=== PATIENT | female | born 1960 | race Caucasian/White ===

== ENCOUNTER 2018-11-25 16:35 | Emergency (ER) | payer MEDICARE, MEDICAID ==
[2018-11-25 17:53] VITALS: BP 127/64
--- NOTE | 2018-11-25 19:34 | UC ---
Respiratory Complaint HPI - HPI Summary HPI Summary: Patient is a 58 year old woman, who present today to the urgent care with sore throat and bilateral ear pain for past 3 days. Right ear hurts more than the left. There is some dry cough associated, denies any congestion or body aches. No sick contacts reported Denies any fever, chills, cough chest pain or shortness of breath . Denies any abdominal pain , nausea or vomiting , diarrhea or constipation. - History of Current Complaint Chief Complaint: UCRespiratory Stated Complaint: ST,B/L EAR COMPLAINT Time Seen by Provider: 11/25/18 19:13 Hx Obtained From: Patient ?: No Pain Intensity: 9 - Allergies/Home Medications Allergies/Adverse Reactions: Allergies Allergy/AdvReac Type Severity Reaction Status Date / Time hydrocodone Allergy Rash Verified 11/25/18 17:53 Penicillins Allergy Rash Verified 11/25/18 17:53 Home Medications: Home Medications Aspirin [Adult Aspirin] 81 mg PO BEDTIME 11/25/18 [History Confirmed 11/25/18] Omeprazole 20 mg PO DAILY 11/25/18 [History Confirmed 11/25/18] Pravastatin Sodium 20 mg PO BEDTIME 11/25/18 [History Confirmed 11/25/18] buPROPion HCl [Wellbutrin Sr] 450 mg PO DAILY 11/25/18 [History Confirmed ] traZODone TAB* [Desyrel TAB*] 50 mg PO BEDTIME 11/25/18 [History Confirmed 11/25] PMH/Surg Hx/FS Hx/Imm Hx - Additional Past Medical History Additional PMH: GERD Depression Hyperlipidemia Sleep problems Previously Healthy: Yes - Surgical History Surgical History: Yes Surgery Procedure, Year, and Place: tubal - Social History Alcohol Use: None Substance Use Type: None Smoking Status (MU): Never Smoked Tobacco Review of Systems All Other Systems Reviewed And Are Negative: Yes Constitutional: Positive: Negative Skin: Positive: Negative Eyes: Positive: Negative ENT: Positive: Sore Throat, Ear Ache - Bilateral Respiratory: Positive: Cough - Dry Cardiovascular: Positive: Negative Gastrointestinal: Positive: Negative Genitourinary: Positive: Negative Motor: Positive: Negative Neurovascular: Positive: Negative Musculoskeletal: Positive: Negative Neurological: Positive: Negative Psychological: Positive: Negative Is Patient Immunocompromised?: No Physical Exam - Summary Physical Exam Summary: Physical Exam: Const: Appears well. No signs of apparent distress present. Alert and oriented x 3. Musculo: Walks with a normal gait. Head/Face: Atraumatic, normocephalic on inspection. Eyes: EOMI and PERRLA in both eyes. Conjunctivae clear. No discharge noted ENT: Hearing normal, TM normal appearing bilaterally. Left external auditory canal with erythema. Right external auditory canal with erythema and whitish discharge. There is tenderness with manipulation of tricuspid bilaterally No lymphadenopathy Mild pharyngeal erythema without any exudates Respiratory: Respirations are unlabored. Lungs clear to auscultation bilaterally, no wheezing , rhonchi or rales noted . CVS: Regular rate and Rhythm, S1S2 normal , no murmurs identified. Extremities: Peripheral circulation is grossly normal. Pulses 2+ Abdomen : Soft non tender , nondistended , Bowel sounds present . No guarding , rebound tenderness or rigidity noted. Skin: No lesions or rash located on the upper extremities or on the lower extremities. Neuro: Cranial nerves II to XII intact, motor and sensory intact. DTR Intact bilaterally. Mood is normal. Affect is normal. Triage Information Reviewed: Yes Vital Signs: Initial Vital Signs Temp 100 F 11/25/18 17:44 Pulse 75 11/25/18 17:44 Resp 16 11/25/18 17:44 BP 127/64 11/25/18 17:44 Pulse Ox 98 11/25/18 17:44 Vital Signs Reviewed: Yes Respiratory Course/Dx - Course Course Of Treatment: During the visit today, we obtained a rapid strep test which was negative . We discussed the findings consistent with bilateral otitis externa . She was given the eardrops here and his rest of the bottle was dispensed for home. Patient expressed understanding . - Differential Dx/Diagnosis Provider Diagnosis: Bilateral otitis externa Discharge - Sign-Out/Discharge Documenting (check all that apply): Patient Departure All imaging exams completed and their final reports reviewed: No Studies - Discharge Plan Condition: Stable Disposition: HOME Patient Education Materials: Otitis Externa (ED) Referrals: Raya Negron NP [Primary Care Provider] - 1 Week Additional Instructions: Please start using the ear drops as advised. Follow up with your primary care doctor in 1 week Return to Urgent care / ER if symptoms get worse. - Billing Disposition and Condition Condition: STABLE Disposition: Home
[2018-11-25] MEDS ORDERED: Neomyc/Polym/HC 1% OTIC SUSP* **OTIC BOTH EARS ONE (20:26)
== END 2018-11-25 20:54 | disposition home or self-care (01) ==
LOC: UCCORT 16:35
DX: H60.93 Unspecified otitis externa, bilateral (principal); F32.9 Major depressive disorder, single episode, unspecified; K21.9 Gastro-esophageal reflux disease without esophagitis; Z88.0 Allergy status to penicillin; Z79.899 Other long term (current) drug therapy; Z88.5 Allergy status to narcotic agent
CPT/HCPCS: 87651; 99202; A9270-GY; G0463